=== PATIENT | female | born 1975 | race African-American/Black ===

== ENCOUNTER 2017-08-21 18:21 | Emergency (ER) | payer BC ==
[~2017-08-21] VITALS: Ht 165.1 cm; Wt 83.5 kg
[2017-08-21 18:27] VITALS: BP 130/92
[2017-08-21 20:27] VITALS: BP 148/98
[2017-08-21] MEDS ORDERED: IBUPROFEN600 MG ORAL ×2 (20:52→20:56)
[2017-08-21] MEDS ORDERED: ROBAXIN-750750 MG PO ×2 (20:52→20:56)
[2017-08-21 21:04] VITALS: BP 148/98
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
== END 2017-08-21 21:04 | disposition home or self-care (01) ==
LOC: EMR 20:35
DX: M54.2 Cervicalgia (principal); T14.8XXA Other injury of unspecified body region, initial encounter; V43.52XA Car driver injured in collision with other type car in traffic accident, initial encounter; Y93.9 Activity, unspecified; Y92.410 Unspecified street and highway as the place of occurrence of the external cause; I10 Essential (primary) hypertension
CPT/HCPCS: 99284